=== PATIENT | male | born 2000 | race Two or more races ===

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

== ENCOUNTER 2021-02-02 11:01 | Outpatient (CLI) | payer BC ==
--- NOTE | 2021-02-02 11:44 | XRAY Report ---
PROCEDURE: Hand 3 View LT INDICATIONS: CONCERN FOR 5TH MC Fx TECHNIQUE: 3 views of the hand(s) acquired. COMPARISON: None FINDINGS: Bones: In this patient with this given history, scrutiny is given to fifth metacarpal. No fractures can be seen involving this bone. No fractures or dislocations are seen elsewhere. No suspicious bony lesions. Soft tissues: No suspicious soft tissue calcifications. IMPRESSION: Negative for acute fracture. Reviewed by: Alcides Frances MD on 02/02/2021 10:43 AM JOSELO Approved by: Alcides Frances MD on 02/02/2021 10:43 AM JOSELO Station ID: [id number]
== END 2021-02-02 11:02 | disposition home or self-care (01) ==
LOC: DI.N 11:01
PROVIDERS: ATTEND Physician Assistant
DX: S69.92XA Unspecified injury of left wrist, hand and finger(s), initial encounter (principal); M79.642 Pain in left hand